=== PATIENT | female | born 1975 | race Caucasian/White ===

== ENCOUNTER 2017-07-07 15:26 | Outpatient (CLI) | payer OTHER ==
[~2017-07-07] VITALS: Ht 160 cm; Wt 61.2 kg
[2017-07-07 15:37] VITALS: BP 119/75
[2017-07-07 15:53] LABS: BASOPHILS % (AUTO) 1 % (0-10); EOSINOPHILS # (AUTO) 0.2 10^3/uL (0.0-0.3); EOSINOPHILS % (AUTO) 3 % (0-10); LYMPHOCYTES # (AUTO) 1.8 X 10^3 (1.0-4.0); LYMPHOCYTES % (AUTO) 28 % (12-44); MEAN CORPUSCULAR HEMOGLOBIN 30 PG (25-34); MEAN CORPUSCULAR HGB CONC 35 G/DL (32-36); MEAN CORPUSCULAR VOLUME 87 FL (80-99); MONOCYTES # (AUTO) 0.9 X 10^3 (0.0-1.0); MONOCYTES % (AUTO) 14 % (0-12); NEUTROPHILS # (AUTO) 3.5 X 10^3 (1.8-7.8); NEUTROPHILS % (AUTO) 55 % (42-75); PLATELET COUNT 257 10^3/uL (130-400); RED BLOOD COUNT 4.68 10^6/uL (4.35-5.85); RED CELL DISTRIBUTION WIDTH 12.1 % (10.0-14.5); WHITE BLOOD COUNT 6.4 10^3/uL (4.3-11.0)
== END 2017-07-07 15:50 | disposition home or self-care (01) ==
LOC: PREOP 15:26
PROVIDERS: ATTEND Obstetrics & Gynecology
DX: Z01.812 Encounter for preprocedural laboratory examination (principal); Z11.2 Encounter for screening for other bacterial diseases; N93.8 Other specified abnormal uterine and vaginal bleeding; D64.9 Anemia, unspecified
CPT/HCPCS: 36415; 85025; 86850; 86900; 86901; 87081

== ENCOUNTER 2017-07-12 10:56 | Day surgery (SDC) | payer OTHER ==
--- NOTE | 2017-07-09 11:21 | HISTORY AND PHYSICAL ---
DATE OF SERVICE: PREOPERATIVE HISTORY AND PHYSICAL DATE OF ADMISSION: 07/12/2017 Surgery is planned for 07/12/2017. HISTORY OF PRESENT ILLNESS: The patient is a 42-year-old G4, P3, A1, white female with a long history of abnormal bleeding. She has been treated with hormones without adequate effect. Ultrasound shows a thickened endometrial stripe and extensive appearance of adenomyosis in the uterine mosley. The ovaries are essentially quiet on ultrasound. There is a cystic mass in the cul-de-sac. The patient has elected to have definitive surgical treatment in the form of hysterectomy with bilateral salpingectomies. Her ovaries will be conserved if they appear normal. The patient denies dysuria or dyschezia. She has no urinary leakage with cough stress or strain. She has had progressive breakthrough bleeding over a period of months and dating back to several years. She bleeds midcycle and sometimes throughout the cycle. Occasionally, she will have 2 periods a month. She is ready for the definitive treatment. ALLERGIES: ERYTHROMYCIN which causes nausea, vomiting. MEDICATIONS: Copper T IUD. PAST MEDICAL HISTORY: Per her H and P dated 06/09/2017. PAST SURGICAL HISTORY: Per her H and P dated 06/09/2017. OBSTETRIC HISTORY: Per her H and P dated 06/09/2017. FAMILY HISTORY: Per her H and P dated 06/09/2017. SOCIAL HISTORY: Per her H and P dated 06/09/2017. PHYSICAL EXAMINATION: HEENT: Normal. NECK: Supple, no lymphadenopathy, no thyromegaly. ABDOMEN: Nulligravid, soft, nondistended, nontender. There is no guarding, rebound or rigidity. BREAST EXAM: Deferred. EXTREMITIES: Show no clubbing or cyanosis. There is no Reshma sign. PELVIC EXAM: Shows a well-supported uterus and vaginal vault. There was a copious discharge in the vaginal vault. The uterus is normal in size and consistency. It is mid plane to slightly anteverted. It is somewhat globular and tender on palpation. Adnexal exam reveals a normal adnexa with a fullness in the cul-de-sac. Rectovaginal exam is confirmatory. ASSESSMENT: Dysfunctional uterine bleeding/menorrhagia and menometrorrhagia and a cystic mass in the cul-de-sac. PLAN: For laparoscopic total hysterectomy with bilateral salpingectomies and removal of the cystic mass. Other indicated procedures could include removing one or both ovaries and/or the appendix. That will be decided intraoperatively. Surgical risks, complication recovery and follow up have been fully discussed with this patient. She has had all of her questions answered to her satisfaction and she is ready to proceed with surgery on Thursday 07/12. Job ID: [id number] DocumentID: [id number] Dictated Date: 07/09/2017 10:17:35 Home Health Clinical Liaison Date: 07/09/2017 11:20:40 Dictated By: RENEE ALVAREZ MD
[~2017-07-12] VITALS: Ht 160 cm; Wt 61.2 kg
[2017-07-12 11:30] VITALS: BP 119/72
[2017-07-12] MEDS: LACTATED RINGERS 1,000 ML IV PRN ×2 (11:30→15:02)
[2017-07-12] MEDS ORDERED: D5 LR IV SOLUTION 1,000 ML IV SCH (12:16)
[2017-07-12] MEDS ORDERED: WATER (STERILE) FOR INJ 10 ML BTL INJ ONE (12:30)
[2017-07-12] MEDS ORDERED: KETOROLAC 30 MG/ML VIAL IVP SCH (12:30)
[2017-07-12] MEDS ORDERED: MEPERIDINE (DEMEROL) INJ 100 MG/ML IM PRN (12:30)
[2017-07-12] MEDS ORDERED: PROMETHAZINE INJ 25 MG/ML (PHENERGAN) AMP IM PRN (12:30)
[2017-07-12] MEDS ORDERED: ESTROGENS CONJ IV 25 MG/5 ML (PREMARIN) VIAL IVP ONE (12:30)
[2017-07-12] MEDS ORDERED: ceFAZolin INJECTION 1,000 MG in NS (IVPB) 50 ML IV ONE (12:30)
[2017-07-12] MEDS ORDERED: ONDANSETRON 4 MG/2 ML (SDV) Z0FRAN IVP PRN ×2 (12:30→17:00)
--- NOTE | 2017-07-12 12:57 | Progress Note-Pre Operative ---
Pre-Operative Progress Note H&P Reviewed The H&P was reviewed, patient examined and no changes noted. Date Seen by Provider: Jul 12, 2017 Time Seen by Provider: 12:56 Date H&P Reviewed: Jul 12, 2017 Time H&P Reviewed: 12:56 Pre-Operative Diagnosis: discharging or bleeding/menorrhagia/pelvic mass RENEE ALVAREZ MD Jul 12, 2017 12:56 pm
--- NOTE | 2017-07-12 12:58 | Progress Note-Post Operative ---
Post-Operative Progess Note Surgeon (s)/Neon Installer (s) Surgeon RENEE ALVAREZ MD Neon Installer: Paula Dennis Pre-Operative Diagnosis DUB/menorrhagia/pelvic mass Post-Operative Diagnosis ssame with pathology pending Procedure & Operative Findings Date of Procedure 07/12/17 Procedure Performed/Findings total laparoscopic hysterectomy with bilateral salpingectomies and removal of cyst from cul-de-sac Anesthesia Type Gen. endotracheal tube anesthesia Estimated Blood Loss Estimated blood loss (mL): minimal Specimens/Packing Specimens Removed uterus fallopian tubes and cyst from cul-de-sac Packing: none RENEE ALVAREZ MD Jul 12, 2017 12:58
--- OUTSIDE RECORDS SUMMARY | 2017-07-12 12:58 | XMS REPORT | Continuity of Care Document ---
Author Author [facility] Organization [facility] Address Unknown Phone Unavailable Allergies Active Description Code Type Severity Reaction Onset Reported/Identified Relationship to Patient Clinical Status Yes erythromycin base [id number] Drug Allergy Unknown N/A 10/28/2005 Medications There is no data. Problems Date Dx Coded Attending Type Code Diagnosis Diagnosed By 07/16/2014 Ot V76.12 08/20/2014 RENEE ALVAREZ MD, Ot V76.12 07/22/2015 RENEE ALVAREZ MD, Ot V76.12 08/16/2015 RENEE ALVAREZ MD, Ot Z12.31 07/23/2016 RENEE ALVAREZ MD, Ot V76.12 OTH SCREEN MAMMO-MALIGN NEOPLASM OF CHARLENE 07/23/2016 RENEE ALVAREZ MD, Ot Z12.31 ENCNTR SCREEN MAMMOGRAM FOR MALIGNANT NE 07/24/2016 RENEE ALVAREZ MD, Ot Z12.31 ENCNTR SCREEN MAMMOGRAM FOR MALIGNANT NE 07/07/2017 RENEE ALVAREZ MD, Ot V76.12 OT SCREEN MAMMO-MALIGN NEOPLASM OF CHARLENE 07/07/2017 RENEE ALVAREZ MD Ot Z12.31 ENCNTR SCREEN MAMMOGRAM FOR MALIGNANT NE 07/07/2017 RENEE ALVAREZ MD, Ot Z12.31 ENCNTR SCREEN MAMMOGRAM FOR MALIGNANT NE Procedures There is no data. Results Test Result Range Complete blood count (CBC) with automated white blood cell (WBC) differential - 07/07/17 15:40 Blood leukocytes automated count (number/volume) 6.4 10*3/uL 4.3-11.0 Blood erythrocytes automated count (number/volume) 4.68 10*6/uL 4.35-5.85 Venous blood hemoglobin measurement (mass/volume) 14.0 g/dL 11.5-16.0 Blood hematocrit (volume fraction) 41 % 35-52 Automated erythrocyte mean corpuscular volume 87 [foz_us] 80-99 Automated erythrocyte mean corpuscular hemoglobin (mass per erythrocyte) 30 pg 25-34 Automated erythrocyte mean corpuscular hemoglobin concentration measurement ( mass/volume) 35 g/dL 32-36 Automated erythrocyte distribution width ratio 12.1 % 10.0-14.5 Automated blood platelet count (count/volume) 257 10*3/uL 130-400 Automated blood platelet mean volume measurement 10.0 [foz_us] 7.4-10.4 Automated blood neutrophils/100 leukocytes 55 % 42-75 Automated blood lymphocytes/100 leukocytes 28 % 12-44 Blood monocytes/100 leukocytes 14 % 0-12 Automated blood eosinophils/100 leukocytes 3 % 0-10 Automated blood basophils/100 leukocytes 1 % 0-10 Blood neutrophils automated count (number/volume) 3.5 10*3 1.8-7.8 Blood lymphocytes automated count (number/volume) 1.8 10*3 1.0-4.0 Blood monocytes automated count (number/volume) 0.9 10*3 0.0-1.0 Automated eosinophil count 0.2 10*3/uL 0.0-0.3 Automated blood basophil count (count/volume) 0.0 10*3/uL 0.0-0.1 Blood type T Indirect antibody screen panel - 07/07/17 15:40 ABO+Rh group BP NRG Transfusion band number TNP NRG Blood group antibody screen NEGATIVE NRG Methicillin resistant Staphylococcus aureus (MRSA) screening culture - 15:40 Methicillin resistant Staphylococcus aureus (MRSA) screening culture NEG NRG Encounters ACCT No. Visit Date/Time Discharge Status Pt. Type Provider Facility Loc./Unit Complaint [id number] 07/07/2017 15:26:00 07/07/2017 15:50:00 DIS Outpatient RENEE ALVAREZ MD [facility] PREOP DYSFUNCTIONAL UTERINE BLEEDING [id number] 06/09/2017 10:34:00 06/09/2017 23:59:59 CLS Preadmit RENEE ALVAREZ MD [facility] RAD ROUTINE [id number] 07/23/2016 09:51:00 07/23/2016 23:59:59 CLS Outpatient RENEE ALVAREZ MD [facility] RAD SCREENING [id number] 07/22/2015 14:30:00 07/22/2015 23:59:59 CLS Outpatient RENEE ALVAREZ MD [facility] RAD SCREENING [id number] 07/16/2014 09:36:00 07/16/2014 23:59:59 CLS Outpatient RENEE ALVAREZ MD [facility] RAD ROUTINE [id number] 07/12/2017 14:15:00 PEN Preadmit RENEE ALVAREZ MD [facility] DYSFUNCTIONAL UTERINE BLEEDING [id number] 07/31/2009 15:16:00 Document Registration
[2017-07-12] MEDS ORDERED: DOCU100C37 PO (12:59)
[2017-07-12] MEDS ORDERED: IBUP-1780 PO (12:59)
[2017-07-12] MEDS ORDERED: OXYC-465 PO (12:59)
--- NOTE | 2017-07-12 13:01 | Discharge Instructions ---
Discharge Instructions Discharge Medications New, Converted or Re-Newed RX: RX on Chart Patient Instructions Patient Instructions: as directed Return to The Hospital For: aas directed Activity & Diet Discharge Diet: No Restrictions Activity as Tolerated: No Orders-Post D/C & Referrals Follow Up Appt: [facility] to clinic on , July 15, 2017 at 930 a.m. for staple removal Call to make follow up appt. for patient in 4 weeks. Activity: Rest for 24 hours, than as tolerated. Wound Care: May remove Band-Aid tomorrow. Replace as desired. Keep incisions clean and dry. Wash daily with soap and water. Please call in RX to patient pharmacy. Diet: As tolerated-Clear Liquids only if nauseated. May shower or tub bathe as desired. No driving for 24 hours, no alcoholic beverages for 24 hours, and nothing per vagina (no tampons, douching, or intercourse) for 8 weeks. Patient to return to the clinic as soon as possible for: Temperature greater than 101F, Severe Pain, Foul discharge from incision or vagina, Excessive Bleeding (more than a period). RENEE ALVAREZ MD Jul 12, 2017 1:01 pm
[2017-07-12] MEDS ORDERED: ceFAZolin 1,000 MG (ANCEF) VIAL ONE (13:09)
[2017-07-12] MEDS ORDERED: NS (IVPB) 50 ML ONE (13:09)
[2017-07-12] MEDS ORDERED: BUP/EPI 0.5% 1:200,000 (MARCAINE) 10ML VIAL IJ ONE (14:25)
[2017-07-12] MEDS ORDERED: proPOfol 200 MG/20 ML (DIPRIVAN) VIAL IV ONE (14:26)
[2017-07-12] MEDS ORDERED: ROCURONIUM 50 MG/5 ML (ZEMURON) VIAL IV ONE (14:26)
[2017-07-12] MEDS ORDERED: fentaNYL INJECTION 250 MCG/5 ML AMP ONE (14:26)
[2017-07-12] MEDS ORDERED: MIDAZOLAM 2 MG/2 ML (VERSED) VIAL ONE (14:26)
[2017-07-12] MEDS ORDERED: KETOROLAC 30 MG/ML VIAL ONE (15:15)
[2017-07-12] MEDS ORDERED: DEXAMETHASONE 10 MG/ML (DECADRON) 1 ML VIAL ONE (15:15)
[2017-07-12] MEDS ORDERED: GLYCOPYRROLATE 0.2 MG/ML (ROBINUL) 2 ML VIAL ONE (15:16)
[2017-07-12] MEDS ORDERED: morphine INJ 10 MG/ML 1ML (SYR OR VIAL) ONE (15:27)
[2017-07-12] MEDS ORDERED: ESTROGENS CONJ IV 25 MG/5 ML (PREMARIN) VIAL ONE (15:28)
[2017-07-12] MEDS ORDERED: WATER (STERILE) FOR INJECTION 10 ML ONE (15:28)
[2017-07-12] MEDS ORDERED: BUP/EPI 0.5% 1:200,000 (SENSORCAINE) 30 ML VIAL INJ ONE (15:30)
[2017-07-12] MEDS ORDERED: NEOSTIGMINE (BLOXIVERZ ) 1 MG/1ML 10 ML VIAL ONE (16:21)
[2017-07-12] MEDS ORDERED: SEVOFLURANE (ULTANE) 15 ML INHAL SOLN ONE (16:21)
[2017-07-12] MEDS ORDERED: morphine INJ 10 MG/ML 1ML (SYR OR VIAL) IVP PRN (17:00)
[2017-07-12] MEDS ORDERED: HYDROmorphone (DILAUDID) 2 MG/ML VIAL IVP PRN (17:00)
[2017-07-12] MEDS ORDERED: MEPERIDINE (DEMEROL) INJ 50 MG/ML IVP PRN (17:00)
[2017-07-12 17:10] VITALS: BP 117/59
[2017-07-12] MEDS ORDERED: PROMETHAZINE INJ 25 MG/ML (PHENERGAN) AMP ONE (17:31)
[2017-07-12 19:58] VITALS: BP 120/75
[2017-07-12] MEDS: KETOROLAC 30 MG/ML VIAL IVP SCH (22:10)
[2017-07-12 23:41] VITALS: BP 126/76
[2017-07-12] MEDS: oxyCODONE/APAP 10/325MG (PERCOCET 10) TABLET PO PRN (23:41)
--- NOTE | 2017-07-12 23:55 | OPERATIVE REPORT ---
DATE OF SERVICE: 07/12/2017 PREOPERATIVE DIAGNOSES: Dysfunctional uterine bleeding, menorrhagia, not controlled with hormones as well as pelvic pain. POSTOPERATIVE DIAGNOSES: Dysfunctional uterine bleeding, menorrhagia, not controlled with hormones as well as pelvic pain, endometriosis, adenomyosis and a peritoneal mesothelial cyst. OPERATIVE PROCEDURE: Total laparoscopic hysterectomy with bilateral salpingectomies as well as removal of the peritoneal cyst. OPERATIVE DESCRIPTION: With the patient in the supine position under satisfactory general anesthesia, she was repositioned in dorsal lithotomy position in the [facility] and prepped and draped in the usual fashion for abdominal and vaginal surgery. Urinary bladder was drained via Templeton catheter to dependent drainage. A weighted speculum was placed in the posterior fornix of the vagina. The uterus was sounded to 8 cm. The cervix was then serially dilated with Woo dilators to accommodate a Lida II manipulator, which was placed in the usual manner using a 6 x 8 cm uterine probe and a 30 mm colpotomy ring and sutures of #1 Vicryl at 3 and 9 o'clock positions of the cervix to affix it to the manipulator. The patient brought in low dorsal lithotomy position. A 12 mm incision made 2 cm superior to the umbilicus, 8 mm incisions were made 9 cm lateral to the umbilicus. All incision sites were infiltrated with 0.25% Marcaine with epinephrine prior to incision. Veress needle placed through the midline incision. Correct placement was confirmed with a water drop test. The abdomen was insufflated with 2.4 liters of carbon dioxide and the Veress needle was removed and a 12 mm Optiview laparoscopic port placed through that incision. The patient was placed in Trendelenburg and 8 mm ports were placed through the lateral incisions. The bowel was allowed to spill up out of the pelvis. The laparoscopic instruments were attached and affixed and then using a vessel sealer on the right and a bipolar fenestrated grasper on the left, the pelvis was first examined. The right fallopian tube was surgically absent. The left fallopian tube was normal. Both ovaries were normal, although the right ovary was somewhat smaller than the left. Both ureters were seemed to peristalse. There was endometriosis implants in the ovarian fossae bilaterally and in the cul-de-sac. The uterus appeared mottled consistent with adenomyosis. The laparoscope was rotated. The appendix was not identifiable. It appears that it was surgically absent. The laparoscope was brought back to the pelvis and using the vessel sealer, the ovary was grasped, the uteroovarian pedicle was clamped, cauterized and divided as was the round ligament and the broad ligaments and eventually the cardinal ligament. On the left side, the mesosalpinx was clamped, cauterized and divided proximal to the ovary and then the uteroovarian pedicle, round ligament and broad ligament and cardinal ligament were treated in the same manner as on the right, allowing for removal of the fallopian tube with the uterus eventually. The anterior lower uterine segment was now exposed and removed with a vessel sealer and using a monopolar shear, the anterior lower uterine segment peritoneum was divided. The bladder was carefully dissected down off the lower uterine segment. There was some scar tissue in this area secondary to the patient's C-sections, but the dissection was very nicely accomplished with no damage or trauma to the bladder or to adjacent structures. The colpotomy incision was started at 12 o'clock position onto the colpotomy ring that was continued circumferentially clockwise and then counterclockwise until the entire colpotomy ring was exposed. At that point, the uterus with the fallopian tube on the left still attached was extracted through the vagina. The cyst occupying the cul-de-sac was actually several small what appeared to be mesothelial cyst. This was elevated and placed in the apex of the vagina with plans to remove it on completion of the procedure vaginally. Using a V-Loc barbed suture starting on the right angle, the angle vaginal cuff was closed incorporating the uterine vessel pedicle. The closure was then continued to the midportion of the vaginal cuff and then the peritoneum on that side was brought down with the last couple of stitches of that suture on the left. A second V-Loc suture was used to further support the ovary up to the round ligament and then ligate the uterine vessel pedicles and then closed the balance of the vaginal cuff in the usual manner. The peritoneum was brought back down on the left side in the process as well. Good reapproximation was achieved. Hemostasis was complete. The instruments now replaced back with bipolar fenestrated grasper on the left and monopolar shear on the right. The endometriosis implants in the cul-de-sac were touched with electrocautery to destroy them. There were some filmy adhesions in the cul-de-sac that were divided as well. There were adhesions of the sigmoid mesentery on the left pelvic brim in an area that appeared to be involved with endometriosis as well. The endometriosis was destroyed with electrocautery and the adhesions were taken down. With all of the abnormal pathology treated, no bleeding, no abnormal pathology remained. The procedure was terminated. The operative instruments were removed under direct vision as were the ports. The patient was brought out of Trendelenburg and the abdomen was evacuated and insufflating gas in the process of removing the ports. The skin incisions were stapled and the fascia at the supraumbilical incision was closed with [id number] suture of 2-0 Vicryl. The speculum was replaced now in the vagina to assess the vaginal cuff, which was completely reapproximating and completely hemostatic. Sponge and needle counts were correct at the end of the procedure. Estimated blood loss for procedure was less than 10 mL. The patient tolerated the procedure well and was uneventfully awakened from her general anesthesia and transferred to the recovery room in stable condition. Job ID: [id number] DocumentID: [id number] Dictated Date: 07/12/2017 16:07:49 Metallurgical Or Materials Technician Date: 07/12/2017 23:54:38 Dictated By: RENEE ALVAREZ MD
[2017-07-13 03:30] VITALS: BP 121/73
[2017-07-13] MEDS ORDERED: INFLUENZA TRIvalent 2017-2018 0.5 ML/45 MCG SYR IM ONE (07:00)
[2017-07-13] MEDS: KETOROLAC 30 MG/ML VIAL IVP SCH (07:28)
--- NOTE | 2017-07-13 08:00 | Progress Note-Standard ---
Standard Progress Note Progress Notes/Assess & Plan Date Seen by Provider: Jul 13, 2017 Time Seen by Provider: 07:59 Progress/Assessment & Plan this patient is without complaint. She is ambulating, she is voiding, tolerating by mouth well, has good pain control. Patient is requesting discharge home. Vital Signs Date Time Temp Pulse Resp B/P (MAP) Pulse Ox O2 Delivery O2 Flow Rate FiO2 07/13/17 03:49 Room Air 07/13/17 03:30 98.2 63 18 121/73 (89) 97 Room Air 07/12/17 23:41 98.7 85 18 126/76 (93) 97 Room Air 07/12/17 19:58 98.5 74 18 120/75 (90) 98 Room Air 07/12/17 17:10 97.3 46 18 117/59 (78) 100 Room Air 07/12/17 11:30 97.5 53 18 119/72 (88) 100 Room Air I & O 07/13/17 07:00 Intake Total 2720 ml Output Total 1565 ml Balance 1155 ml vital signs are stable. Patient is afebrile. The abdomen is benign. Bowel sounds are present in all 4 quadrants Extremities show no clubbing or cyanosis. There is no Homans sign. There is no edema. Assessment and plan postoperative day number 1 status post hysterectomy doing well. Plan is for discharge home with follow-up in clinic Final Diagnosis DUB/menorrhagia RENEE ALVAREZ MD Jul 13, 2017 8:00 am
[2017-07-13] MEDS ORDERED: IBUPROFEN 800 MG (MOTRIN) TAB PO ONE (08:51)
[2017-07-13 08:59] VITALS: BP 117/66
[2017-07-13] MEDS: oxyCODONE/APAP 10/325MG (PERCOCET 10) TABLET PO PRN (08:59)
[2017-07-13] MEDS ORDERED: DOCUSATE SODIUM 100 MG (COLACE) CAP PO SCH (09:00)
[2017-07-13] MEDS ORDERED: IBUPROFEN 800 MG (MOTRIN) TAB PO SCH (16:00)
== END 2017-07-13 09:35 | disposition home or self-care (01) ==
LOC: SDC 10:56 → WS 17:00 → SDC 07-13 09:35
PROVIDERS: ATTEND Obstetrics & Gynecology
DX: N80.0 Endometriosis of uterus (principal); N83.8 Other noninflammatory disorders of ovary, fallopian tube and broad ligament; Z88.1 Allergy status to other antibiotic agents; D25.1 Intramural leiomyoma of uterus; N72 Inflammatory disease of cervix uteri; K66.8 Other specified disorders of peritoneum
CPT/HCPCS: 84703; 94664

== ENCOUNTER → 2017-08-09 | Outpatient (CLI) | payer OTHER ==
[~2017-08-09] MED LIST: DOCU100C37 PO; IBUP-1780 PO; OXYC-465 PO
--- NOTE | 2017-08-09 15:48 | Diagnostic Imaging Report ---
INDICATION: Digital mammogram bilateral screening. This study was compared to the prior exam of 07/23/16, 07/22/15 and 07/16/14. At this time, there are no current complaints. The current study was also evaluated with a Computer Aided Detection (CAD) system. FINDINGS: There are scattered fibroglandular densities in both breasts which could obscure a lesion. Overall, there does not appear to have been any significant change when compared to the prior exam. No primary or secondary sign of malignancy is noted. IMPRESSION: There is no radiographic evidence for malignancy. ACR BI-RADS Category 1: Negative. Result letter will be mailed to the patient. Note: At least 10% of breast cancer is not imaged by mammography. Dictated by: Dictated on workstation # [id number]
== END ==
LOC: RAD 10:56
PROVIDERS: ATTEND Obstetrics & Gynecology
DX: Z12.31 Encounter for screening mammogram for malignant neoplasm of breast (principal)
CPT/HCPCS: 77067

== ENCOUNTER → 2020-05-09 | Outpatient (CLI) | payer OTHER ==
[~2020-05-09] MED LIST changes: -OXYC-465 PO; +OXYC-556 PO
--- NOTE | 2020-05-09 12:59 | Diagnostic Imaging Report ---
INDICATION: Routine screening. Comparison is made with prior mammogram 04/14/2019 and 08/09/2017. 2-D and 3-D bilateral screening mammography was performed with CAD. Scattered fibroglandular densities are identified bilaterally. The parenchymal pattern is stable. No mass or malignant-appearing microcalcifications are seen. Axillae are unremarkable. IMPRESSION: BI-RADS Category 1 No mammographic features suspicious for malignancy are identified. ACR BI-RADS Category 1: Negative. Result letter will be mailed to the patient. Note: At least 10% of breast cancer is not imaged by mammography. Dictated by: Dictated on workstation # [id number]
== END ==
LOC: RAD 09:00
PROVIDERS: ATTEND Family Medicine
DX: Z12.31 Encounter for screening mammogram for malignant neoplasm of breast (principal)
CPT/HCPCS: 77063; 77067

== ENCOUNTER → 2021-03-07 | Outpatient (CLI) | payer OTHER ==
--- NOTE | 2021-03-07 08:09 | Diagnostic Imaging Report ---
PROCEDURE: US Gallbladder. TECHNIQUE: Multiple real-time grayscale images were obtained over the right upper quadrant in various projections. INDICATION: Right upper quadrant abdominal pain FINDINGS: Grayscale imaging of the gallbladder reveals no intraluminal filling defect. There is no gallbladder wall thickening or pericholecystic fluid. No intra or extrahepatic biliary ductal dilatation is identified. No pancreatic, right renal, abdominal aortic or inferior vena caval abnormality is documented. No ascites was noted. IMPRESSION: Unremarkable gallbladder ultrasound. Dictated by: Dictated on workstation # [id number]
== END ==
LOC: RAD 07:45
PROVIDERS: ATTEND Family Medicine
DX: R10.11 Right upper quadrant pain (principal)
CPT/HCPCS: 76705

== ENCOUNTER → 2022-03-26 | Outpatient (CLI) | payer BC, OTHER ==
--- NOTE | 2022-03-27 09:07 | Diagnostic Imaging Report ---
3D bilateral screening mammogram with CAD. COMPARISONS: 05/09/2020 and 04/14/2019. At this time, there are no current complaints. FINDINGS: There are scattered fibroglandular densities in both breasts which could obscure a lesion. In the interval since the prior study, a group of pleomorphic calcifications has developed in the 8-9 o'clock position of the right breast approximately 8 cm from the nipple. These microcalcifications are not tightly clustered but worrisome for malignancy. I would recommend that a compression/magnification view of this area be obtained in the ML and true lateral projections for further study. A true lateral view of the right breast should also be performed. The overall appearance of the breasts has not changed significantly otherwise. No new abnormality is noted. IMPRESSION: Additional mammographic views of the right breast would be recommended for further study. ACR BI-RADS Category 0: Incomplete. (Needs additional imaging evaluation). Result letter will be mailed to the patient. Note: At least 10% of breast cancer is not imaged by mammography. Dictated by: Dictated on workstation # [id number]
== END ==
LOC: RAD 11:00
PROVIDERS: ATTEND Obstetrics & Gynecology
DX: Z12.31 Encounter for screening mammogram for malignant neoplasm of breast (principal)
CPT/HCPCS: 77063; 77067

== ENCOUNTER → 2022-04-09 | Outpatient (CLI) | payer BC ==
--- NOTE | 2022-04-09 14:49 | Diagnostic Imaging Report ---
Indication: Right breast calcifications. Patient presents for additional views. Correlation is made with the screening study from 03/26/2022. Unilateral right 2-D and 3-D diagnostic mammography was performed. This included magnification CC and ML views as well as conventional 90 degree lateral views. Additional views demonstrate suspicious calcifications in the outer right breast just below the nipple line and at mid to posterior depth. The most posterior calcifications appear to be the most suspicious. No associated soft tissue mass is seen. IMPRESSION: BI-RADS Category 4 Suspicious microcalcifications in the lower outer right breast mid to posterior depth. Tissue sampling is recommended. These would be amenable to stereotactic biopsy approach. ACR BI-RADS Category 4: Suspicious abnormality. Result letter will be mailed to the patient. Note: At least 10% of breast cancer is not imaged by mammography. Dictated by: Dictated on workstation # [id number]
== END ==
LOC: RAD 13:15
PROVIDERS: ATTEND Obstetrics & Gynecology
DX: N63.10 Unspecified lump in the right breast, unspecified quadrant (principal); R92.1 Mammographic calcification found on diagnostic imaging of breast
CPT/HCPCS: 77065; G0279

== ENCOUNTER → 2022-05-27 | Outpatient (CLI) | payer BC | LOC: CARD 08:57 | PROVIDERS: ATTEND Internal Medicine Hematology & Oncology | DX: Z51.11 Encounter for antineoplastic chemotherapy (principal); C50.511 Malignant neoplasm of lower-outer quadrant of right female breast | CPT/HCPCS: 93306 ==

== ENCOUNTER → 2022-08-06 | Outpatient (CLI) | payer BC ==
--- NOTE | 2022-08-06 11:52 | Diagnostic Imaging Report ---
Indication: Malignant neoplasm of the right breast in the lower outer quadrant. No prior ultrasounds are available for comparison. Sonographic interrogation of the right lower outer quadrant was performed. No sonographic abnormality is seen. No solid or cystic masses detected. IMPRESSION: BI-RADS Category 6 No sonographic abnormality is detected. ACR BI-RADS Category 6: Known biopsy proven malignancy. Dictated by: Dictated on workstation # [id number]
== END ==
LOC: RAD 09:51
PROVIDERS: ATTEND Internal Medicine Hematology & Oncology
DX: C50.511 Malignant neoplasm of lower-outer quadrant of right female breast (principal)

== ENCOUNTER → 2022-09-28 | Outpatient (CLI) | payer BC | LOC: CARD 10:00 | PROVIDERS: ATTEND Internal Medicine Hematology & Oncology | DX: Z51.11 Encounter for antineoplastic chemotherapy (principal); I34.0 Nonrheumatic mitral (valve) insufficiency; C50.511 Malignant neoplasm of lower-outer quadrant of right female breast | CPT/HCPCS: 93306 ==

== ENCOUNTER 2022-11-11 10:30 | Outpatient (RCR) | payer BC | END 2022-11-22 | disposition home or self-care (01) | LOC: ONC 10:30 | PROVIDERS: ATTEND Radiology Radiation Oncology | DX: Z00.00 Encounter for general adult medical examination without abnormal findings (principal); N95.1 Menopausal and female climacteric states | CPT/HCPCS: 99205 ==

== ENCOUNTER → 2022-12-23 | Outpatient (RCR) | payer BC | END | disposition home or self-care (01) | LOC: ONC 12-01 08:56 | PROVIDERS: ATTEND Radiology Radiation Oncology | DX: Z51.0 Encounter for antineoplastic radiation therapy (principal); C50.511 Malignant neoplasm of lower-outer quadrant of right female breast; Z17.1 Estrogen receptor negative status [ER-] | CPT/HCPCS: 77280; 77290; 77295; 77300; 77334; 77336; 77417; 77470 ==

== ENCOUNTER → 2022-12-30 | Outpatient (CLI) | payer BC | LOC: CARD 12:55 | PROVIDERS: ATTEND Internal Medicine Hematology & Oncology | DX: Z51.12 Encounter for antineoplastic immunotherapy (principal); C50.511 Malignant neoplasm of lower-outer quadrant of right female breast; I34.0 Nonrheumatic mitral (valve) insufficiency | CPT/HCPCS: 93306 ==

== ENCOUNTER 2023-01-15 07:55 | Outpatient (RCR) | payer BC | END 2023-01-22 | disposition home or self-care (01) | LOC: ONC 07:55 | PROVIDERS: ATTEND Radiology Radiation Oncology | DX: Z51.0 Encounter for antineoplastic radiation therapy (principal); Z45.2 Encounter for adjustment and management of vascular access device; C50.511 Malignant neoplasm of lower-outer quadrant of right female breast; N95.1 Menopausal and female climacteric states | CPT/HCPCS: 77290; 77300; 77332; 77334; 77336; 77417; 99205 ==

== ENCOUNTER 2023-02-25 10:55 | Outpatient (RCR) | payer BC | END 2023-03-25 | disposition home or self-care (01) | LOC: ONC 10:55 | PROVIDERS: ATTEND Radiology Radiation Oncology | DX: C50.511 Malignant neoplasm of lower-outer quadrant of right female breast (principal) | CPT/HCPCS: 99213 ==

== ENCOUNTER → 2023-03-18 | Outpatient (CLI) | payer BC | LOC: CARD 09:31 | PROVIDERS: ATTEND Internal Medicine Hematology & Oncology | DX: Z51.12 Encounter for antineoplastic immunotherapy (principal); C50.511 Malignant neoplasm of lower-outer quadrant of right female breast | CPT/HCPCS: 93306 ==

== ENCOUNTER → 2023-06-22 | Outpatient (CLI) | payer BC | LOC: CARD 09:46 | PROVIDERS: ATTEND Internal Medicine Hematology & Oncology | DX: Z51.12 Encounter for antineoplastic immunotherapy (principal); C50.511 Malignant neoplasm of lower-outer quadrant of right female breast; Z79.899 Other long term (current) drug therapy | CPT/HCPCS: 93306 ==